=== PATIENT | female | born 1995 | race Caucasian/White ===

== ENCOUNTER 2023-02-08 11:34 | Emergency (ER) | payer MEDICAID ==
[~2023-02-08] VITALS: Ht 172.7 cm; Wt 127.3 kg
[2023-02-08] MEDS ORDERED: magnesium 2GM in 50ml NS 50 ML IV ONE (12:15)
[2023-02-08] MEDS ORDERED: methylPREDNISolone sod succ 125mg/2ml vial IV ONE (12:15)
[2023-02-08] MEDS ORDERED: albuterol 2.5 MG/3 ML nebule CONTNEB PRN (12:15)
--- NOTE | 2023-02-08 12:23 | NUR ---
RN PAGED RT AND REQ RT TX JESICA.
[2023-02-08] MEDS ORDERED: ipratropium/albuterol 3ml nebule NEB ONE (13:45)
--- NOTE | 2023-02-08 14:10 | NUR ---
RN PAGED RT TO GIVE PT 2ND RT TX.
[2023-02-08 14:18] VITALS: BP 138/95
[2023-02-08] MEDS ORDERED: PRED20TA PO (14:29)
[2023-02-08] MEDS ORDERED: ALBU6.7H14 INH (14:29)
== END 2023-02-08 14:37 | disposition home or self-care (01) ==
LOC: ER 11:35
DX: J45.909 Unspecified asthma, uncomplicated (principal); Z79.899 Other long term (current) drug therapy
CPT/HCPCS: 71046; 94640; 94644; 96365; 96366; 96375; 99285; J2930; J3475; 94760; A7015

== ENCOUNTER 2025-01-04 18:01 | Emergency (ER) | payer MEDICAID ==
[~2025-01-04] VITALS: Ht 170.2 cm; Wt 137.0 kg
[~2025-01-04 18:01] MED LIST: ALBU6.7H14 INH
[2025-01-04 18:03] VITALS: TEMP 98.5
[2025-01-04 18:41] LABS: BASOPHILS # (AUTO) 0.1 X10'3 (0-0.2); BASOPHILS % (AUTO) 0.4 % (0-1); EOSINOPHILS # (AUTO) 0.2 X10'3 (0-0.9); HEMATOCRIT 41.9 % (35.0-45.0); LYMPHOCYTES # (AUTO) 6.1 X10'3 (1.1-4.8); LYMPHOCYTES % (AUTO) 41.4 % (21-51); MEAN CORPUSCULAR HEMOGLOBIN 28.7 PG (27.0-31.0); MEAN CORPUSCULAR HGB CONC 33.4 g/dL (33.0-36.5); MEAN PLATELET VOLUME 8.3 FL (7.4-10.4); MONOCYTES % (AUTO) 6.9 % (2-12); NEUTROPHILS # (AUTO) 7.4 X10'3 (1.8-7.7); NEUTROPHILS % (AUTO) 50.3 % (42-75); PLATELET COUNT 300 X10'3 (140-440); RED BLOOD COUNT 4.87 X10'6 (4.20-5.60); RED CELL DISTRIBUTION WIDTH 14.5 % (11.5-14.5); WHITE BLOOD COUNT 14.8 X10'3 (4.5-11.0)
[2025-01-04 18:57] LABS: BILIRUBIN,URINE NEGATIVE (Neg); CLARITY,URINE CLEAR (Clear); COLOR,URINE YELLOW (Yellow); GLUCOSE, URINE NEGATIVE (Neg); KETONES,URINE NEGATIVE (Neg); LEUKOCYTE ESTERASE ,URINE NEGATIVE (Neg); NITRITES, URINE NEGATIVE (Neg); OCCULT BLOOD,URINE NEGATIVE (Neg); PROTEIN,URINE TRACE mg/dl (Neg); UROBILINOGEN,URINE 0.2 E.U/dL (0.2-1.0)
[2025-01-04 18:59] LABS: ALANINE AMINOTRANSFERASE 64 U/L (12-78); ALBUMIN/GLOBULIN RATIO 0.9 (1.1-1.5); ALKALINE PHOSPHATASE 111 IU/L (46-116); ANION GAP 12 (8-16); ASPARTATE AMINO TRANSFERASE 38 U/L (10-37); BILIRUBIN,TOTAL 0.3 MG/DL (0.1-1.0); BLOOD UREA NITROGEN 8 MG/DL (7-18); BUN/CREATININE RATIO 7.3 (10.0-20.0); CALCIUM 8.6 MG/DL (8.5-10.1); CHLORIDE 103 MMOL/L (99-107); GLUCOSE 106 MG/DL (70-104); LIPASE 22 U/L (16-77); POTASSIUM 3.2 MMOL/L (3.5-5.1); SODIUM 141 MMOL/L (135-145); TOTAL CARBON DIOXIDE 26.5 MMOL/L (24-32); TOTAL PROTEIN 8.6 G/DL (6.4-8.2); eCRCL 72 ML/MIN; eGFR 58 ML/MIN
[2025-01-04 19:02] LABS: URINE HCG NEGATIVE (NEG)
[2025-01-04 19:10] LABS: UA COLLECTION TYPE NON-SPECIFIED
[2025-01-04 19:16] LABS: RBC,URINE NONE SEEN /HPF (0-2); WBC,URINE NONE SEEN /HPF (0-4)
[2025-01-04 19:17] LABS: BACTERIA,URINE FEW /HPF (Neg); SQUAMOUS EPITHELIAL CELL,UR FEW /LPF (FEW)
[2025-01-04] MEDS: morphine 4 MG/ML inj SYRINge IV ONE ×2 (19:22→21:27)
[2025-01-04] MEDS: ondansetron/PF 4mg/2ml inj IV ONE (19:22)
--- NOTE | 2025-01-04 21:06 | Physician Documentation ---
History of Present Illness Chief Complaint: Abdominal Pain Stated Complaint: ABD PAIN Time Seen by MD: 19:46 HPI This is a very pleasant 29-year-old female who presents for evaluation of left lower quadrant abdominal pain that began earlier today without any obvious trigger, trauma provocation. No particular palliating factors. Did not attempt to treat this pain. This never happened in the past. Worse with sitting up, lying down, position change, walking. Accompanied by nausea and a single episode of profound vomitus. The pain is moderate to severe in its intensity, nonradiating not migratory. Does reports some shortness a breath accompanying this pain. Denies any drug use, uses marijuana, denies alcohol use. Medication Reconciliation Allergies: Coded Allergies: No Known Allergies (Unverified , 01/04/25) Scheduled Albuterol Sulfate (Proventil Hfa), 2 PUFFS INH Q6H Review of Systems ROS 10 point review of systems was performed and unless noted above in HPI is negative for acute process/complaint. Physical Exam Vital Signs: Temperature: 98.5, Source: Temporal, Heart Rate: 89, Respiratory Rate: 15, BP: 121/65, Pulse Oximetry: 95, Weight: 137.000 Oxygen Flow Rate: 0 Physical Exam GENERAL: Awake, alert, oriented, GCS 15, no apparent distress, non-toxic appearing, answers questions, follows commands appropriately. Examined in bed 7., accompanied by HEENT: Atraumatic, normocephalic, pupils equal, extraocular muscles intact, sclerae anicteric, mucus membranes moist, oropharynx is clear, no stridor. NECK: supple, full active range of motion, trachea midline, no thyromegaly, no lymphadenopathy, no JVD. CARDIOVASCULAR: regular rate/rhythm, no murmurs/gallops/rubs, Pulses are 2+ in all extremities and symmetric. Capillary refill less than 2 seconds. PULMONARY: Nonlabored, good air movement ,no respiratory distress, speaking in full sentences, clear to auscultation bilaterally, no wheezing, no ronchi, no rales, no accessory muscle use. GASTROINTESTINAL: Soft, left lower quadrant tenderness to palpation reproducing chief complaint, non-distended, normal active bowel sounds, no organomegaly, no pulsatile masses, no CVA tenderness. NEUROLOGIC: Lucid with normal mental status. Normal facial symmetry. Moves all extremities symmetrically and with purpose. No truncal ataxia. Speech is fluid without evidence of dysarthria or aphasia, no focal deficits appreciated. MUSCULOSKELETAL: There is full range of motion of all extremities. There is no joint pain or joint swelling or joint erythema. There is no muscle pain or tenderness or swelling. EXTREMITIES: warm, well-perfused, no cyanosis, no clubbing, no edema, no acute deformities. Skin: warm, dry, no rashes or lesions, no jaundice, no petechiae orpurpura. No ecchymosis. PSYCHIATRIC: Normal affect, normal insight, normal concentration. Focused exam: [] No guarding or rebound Progress Results/Orders Results/Orders Completed Orders - RERE GONZALEZ DO Morphine 4mg/Ml Inj. (Morphine Inj.) (01/04/25 19:10) Ondansetron Inj. (Zofran 4mg/2ml Vial) (01/04/25 19:10) Medications Received in ER Medications (Trade) Dose Ordered Sig/Riri Route PRN Reason Start Time Stop Time Status Last Admin Dose Admin (morphine inj.) 4 mg ONCE ONCE IV 01/04/25 19:10 01/04/25 19:11 DC 01/04/25 19:22 4 MG (Zofran 4mg/2ml vial) 4 mg ONCE ONCE IV 01/04/25 19:10 01/04/25 19:11 DC 01/04/25 19:22 4 MG Vital Signs 01/04/25 01/04/25 01/04/25 18:03 18:48 20:00 Temp 98.5 Pulse 105 86 89 Resp 18 15 15 B/P (MAP) 148/82 121/82 (95) 121/65 (83) Pulse Ox 96 97 95 O2 Flow Rate 0 Laboratory Tests Test 01/04/25 18:25 01/04/25 18:40 White Blood Count 14.8 H Red Blood Count 4.87 Hemoglobin 14.0 Hematocrit 41.9 Mean Corpuscular Volume 86.0 Mean Corpuscular Hemoglobin 28.7 Mean Corpuscular Hemoglobin Concent 33.4 Red Cell Distribution Width 14.5 Platelet Count 300 Mean Platelet Volume 8.3 Neutrophils (%) (Auto) 50.3 Lymphocytes (%) (Auto) 41.4 Monocytes (%) (Auto) 6.9 Eosinophils (%) (Auto) 1.0 Basophils (%) (Auto) 0.4 Neutrophils # (Auto) 7.4 Lymphocytes # (Auto) 6.1 H Monocytes # (Auto) 1.0 H Eosinophils # (Auto) 0.2 Basophils # (Auto) 0.1 CBC Comment Sodium Level 141 Potassium Level 3.2 L Chloride Level 103 Carbon Dioxide Level 26.5 Anion Gap 12 Blood Urea Nitrogen 8 Creatinine 1.10 H Estimated GFR/1.73 m2 58 BUN/Creatinine Ratio 7.3 L Glucose Level 106 H Calcium Level 8.6 Total Bilirubin 0.3 Aspartate Amino Transf (AST/SGOT) 38 H Alanine Aminotransferase (ALT/SGPT) 64 Alkaline Phosphatase 111 Total Protein 8.6 H Albumin 4.0 Globulin 4.6 H Albumin/Globulin Ratio 0.9 L Lipase 22 Chemistry Comments Urine Specimen Description Non-specified Urine Color Yellow Urine Clarity Clear Urine pH 6.0 Urine Specific Rozel >=1.030 Urine Protein Trace Urine Glucose (UA) Negative Urine Ketones Negative Urine Occult Blood Negative Urine Nitrite Negative Urine Bilirubin Negative Urine Urobilinogen 0.2 Urine Leukocyte Esterase Negative Urine RBC None seen Urine WBC None seen Urine Squamous Epithelial Cells Few Urine Bacteria Few Urine Culture Indicated Not ind Volume Urine Centrifuged 5 ml Urine HCG, Qualitative Negative Urine Comment Low volume Medical Decision Making Findings Facility Status: ED Holds, [facility] process The plan was discussed with the patient, who demonstrates clear understanding of the plan and is in agreement with the plan unless otherwise noted in the chart. All questions have been answered, all concerns were addressed unless otherwise documented. I was available throughout their ED stay for frequent reassessment and questions. Differential Diagnoses (considered and possible or likely): [Differential diagnosis considered includes acute appendicitis, acute cholecystitis, pancreatitis, gastritis, PUD, diverticulitis, mesenteric ischemia, abdominal aortic aneurysm, bowel obstruction, enteritis, colitis, fecal impaction, volvulus, IBS, inflammatory bowel disease, specific food intolerance, peritonitis, perforated viscous, malignancy, UTI, abscess, and abdominal pain NOS. Pelvic source of pain was also considered including endometritis, dysmenorrhea, ovarian cyst, ovarian torsion, PID, TOA, cervicitis, vaginitis, or uterine fibroid. History, physical exam, and workup exclude many of the more serious causes listed above. ] ??Differential Diagnoses (considered and unlikely, not requiring evaluation currently): [Aortic/great vessels dissection was considered but it is unlikely based on absence of ripping, tearing, migratory chest pain, absence of syncope or focal neurologic deficits, physical examination indicating equal and symmetric pulses.] MDM Data Please see [facility] for the following: Independent Historians and external Records Review. Historian: [Patient] Independent Historians: ?[, record review] Medication Management: [Reviewed medication list] Social History and determinants: [Reviewed] Please see the body of the note for the following: Any independent interpretations of ECG, imaging studies. All vitals signs/haemodynamics, ordered tests were independently reviewed and interpreted by myself. Nursing triage complaint and vitals reviewed, additional nursing notes were reviewed as available and I agree unless otherwise noted or documented in co ntradiction in the chart Vital Signs: Independently reviewed Labs: Independently interpreted Imaging: Independently interpreted Old Medical Records: Independently reviewed, see [facility] for relevant summary and information Pulse Oximetry: [95%] interpreted as [normal on room air] by me [[employer]: [Regular Rate, Regular rhythm, no ectopy, NSR] reviewed and interpreted by me] Additionally notably showing: [Hemodynamics reviewed. The patient isn't febrile, not tachycardic, no evidence of hypotension respiratory distress. Laboratory studies show mild leukocytosis. No neutrophilic predominance. Metabolic panel notable for mild elevation of creatinine. Lipase is normal. Urine is nondiagnostic for UTI. She is not . Advanced imaging of the abdomen was obtained. The CT shows incidental finding of cysts. I on ovary. Incidental finding of hypodense lesion of right ischial tuberosity. Ultrasound shows good blood flow to both ovaries.] Tests considered but not ordered include: [Not applicable] Social Determinants of Health Impact: Patient was [facility] in [facility], or [facility] [place] to healthcare due to below par ratio of patient to medical providers. [] Comorbid Conditions Impacting Present Evaluation and Care/Treatment: [None] Management Discussions with other Healthcare Providers: [None] Treatment and Disposition Medication Management (Given or considered): []. See EMR for details Consideration for Hospitalization/Escalation/Deescalation of Care: Admission for observation has been considered, [however the patient is able to tolerate p.o., their symptoms are controlled, they are able to rely on oral medications, and their chief complaint/diagnosis can be managed on outpatient basis.] ?ED Course:?[Improved] ?Shared decision making:?[Patient is hemodynamically stable for discharge home with follow with their primary care provider. [ ] Specific and cautious return precautions provided and discussed with full understanding. Any incidental findings were also discussed and follow up recommendations given. [] All questions answered. Patient/family were able to verbalize back return precautions. Patient/family agree to plan. Copies of imaging and laboratory studies were provided.] Code status:?FULL Please see the full Electronic Medical Record for full details of nursing documentation, medications list, other records of complete past medical history and conditions, vital signs, laboratory studies, and any radiologic study interpretations by radiologists. Portions of this note were completed using [employer] dictation software and as a result there may exist minor errors in spell ing. I have reviewed elements of past family and social history and agree as included in note. Thank you Departure Disposition: 01 HOME / SELF CARE / HOMELESS Impression: Primary Impression: Abdominal pain Condition: Improved Discharge Instructions: Abdominal Pain (Nonspecific) Referrals: NO PRIMARY CARE PROVIDER (PCP) Education Educated: Patient Educated regarding: diagnosis, treatment, prognosis, need for follow up Signature Scribe Signature: No scribe Attestation: This note accurately reflects clinical decisions, work performed by myself, DO CARLOS Mireles NICHOLAS M DO Jan 04, 2025 21:06
[2025-01-04] MEDS ORDERED: iohexol 300mg/ml 100ml inj. ONE (21:19)
--- NOTE | 2025-01-04 22:43 | RADIOLOGY REPORT ---
Exam: CT CT ABDOMEN PELVIS W/ IV CONTRAST History: Left lower quadrant abdominal pain Comparison Study: None Technique: Multidetector spiral CT of the abdomen and pelvis was performed from lung bases to pubic s ymphysis. Intravenous contrast was administered during this examination. Portal venous imaging was o btained. Axial, coronal and sagittal multiplanar reformats were performed by the technologist on a [email or web address] workstation. Radiation Dose : 1. Abdomen/Pelvis: CTDIvol 34 mGy, DLP 1945 mGy*cm. Findings: Lung Bases: No acute or significant lung base finding. Normal heart size. No pleural or pericardial effusion. Liver: The liver is normal in size. No focal lesions. Hepatic steatosis. Normal hepatic vascular enh ancement. Gallbladder and Biliary Tree: Unremarkable Spleen: Unremarkable Pancreas: The pancreas is normal in appearance without focal lesions or abnormal enhancement. Adrenal Glands: Unremarkable Kidneys: Kidneys demonstrate normal symmetric enhancement without focal lesions, calculi or hydroneph rosis. Bladder: Unremarkable Bowel: The stomach is grossly normal in appearance. Small bowel and colon are normal in caliber and d istribution. Normal appendix is visualized in the right lower quadrant without findings of appendicit is. Ascites: Absent Lymphadenopathy: No mesenteric, retroperitoneal or periportal lymphadenopathy. Abdominal Wall and Mesentery: Unremarkable. Vasculature: The visualized abdominal aorta is normal in size and caliber. Abdominal and pelvic vess els demonstrate normal enhancement. Pelvic Organs: Left ovary possible subcentimeter corpus luteal cyst. Musculoskeletal: Well corticated 2 cm hypodense lesion in the right ischial tuberosity. IMPRESSION: No acute abdominal or pelvic finding. Possible subcentimeter left ovarian corpus luteal cyst. Conside r further evaluation with ultrasound if clinically indicated.Well corticated 2 cm Hypodense lesion in the right ischial tuberosity. This can be further evaluated with nonemergent MRI .
[2025-01-05] VITALS: BP 132/65; PULSE 87; RESP 15; O2SAT 100
--- NOTE | 2025-01-05 00:51 | RADIOLOGY REPORT ---
INDICATION: L adnexal pain TECHNIQUE: Multiple real-time grayscale transabdominal sonographic images along with color and duplex Doppler of the uterus and ovaries were obtained. COMPARISON: None Findings/ IMPRESSION: The uterus measures 6.1 x 2.6 x 5.6 cm. The endometrium measures 1.1 cm. The right ovary measures 2. 1 x 2.0 x 1.9 cm. The left ovary measures 2.7 x 1.9 x 1.7 cm. There is bilateral color Doppler flow of the ovaries. No free fluid in the pelvic cul-de-sac. Simple appearing bilateral ovarian cysts michael suring up to 1 cm.
[2025-01-05 01:03] LABS: PLATELET ESTIMATE NORMAL; TOTAL CELLS COUNTED 100
== END 2025-01-05 00:38 | disposition home or self-care (01) ==
LOC: ER 18:02
DX: R10.32 Left lower quadrant pain (principal)
CPT/HCPCS: 36415; 74177; 76856; 80053; 81001; 81025; 83690; 85025; 93976; 96374; 96375; 96376; 99285; J2270; J2405; J7030; Q9967; 85007